=== PATIENT | female | born 2000 | race Caucasian/White ===

== ENCOUNTER 2022-05-24 12:58 | Emergency (ER) | payer MEDICAID ==
[~2022-05-24] VITALS: Ht 157.5 cm; Wt 73.0 kg
[~2022-05-24 12:58] MED LIST: FERR-63 PO; IBUP-2030 PO; LABE200T9 PO
[2022-05-24 13:05] VITALS: BP 113/77
[2022-05-24] MEDS ORDERED: PROCHLORPERAZINE 10MG/2ML VIAL IV ONE (18:30)
[2022-05-24] MEDS ORDERED: SODIUM CHLORIDE 0.9% 1,000 ML IV ONE (18:30)
[2022-05-24] MEDS ORDERED: DIPHENHYDRAMINE 50MG/ML VIAL IV ONE (18:30)
[2022-05-24 20:21] LABS: UCG SCREEN NEGATIVE
== END 2022-05-24 21:50 | disposition home or self-care (01) ==
LOC: ER 12:58
DX: R51.9 Headache, unspecified (principal); R11.2 Nausea with vomiting, unspecified
CPT/HCPCS: 70450; 81025; 96361; 96374; 96375; 99284; J0780; J1200; J7030